=== PATIENT | female | born 1975 | race Caucasian/White ===

== ENCOUNTER 2022-07-11 11:18 | Outpatient (CLI) | payer BC, SELFPAY ==
--- NOTE | 2022-07-11 11:30 | CRLHL7_ITS ---
For Patients: As a result of the Cures Act, medical imaging exams and procedure reports are released immediately into your electronic medical record. You may view this report before your referring provider. If you have questions, please contact your health care provider. BILATERAL SCREENING MAMMOGRAM WITH COMPUTER-AIDED DETECTION AND TOMOSYNTHESIS TECHNIQUE: CC and MLO views were obtained. These mammographic images have been obtained using full-field digital technique. These mammographic images were interpreted with the benefit of computer-aided detection. Breast Tomosynthesis was used in this interpretation. COMPARISON FILM: 05/31/21, 05/25/20, 04/15/19. FINDINGS: There are scattered areas of fibroglandular density IMPRESSION: There is no radiographic evidence for malignancy. ASSESSMENT: BI-RADS Category 1: Negative RECOMMENDATION: Routine screening mammogram in 1 year. A lay language report of this examination will be provided to the patient. Darío Luu M.D. Diagnostic Radiologist [email or web address] Transcribed: 2:34 p.mMikayla barnes/Dictated by: Darío Luu MD @ 07/11/2022 12:50:00 PM (Electronically Signed)
== END 2022-07-11 11:19 | disposition home or self-care (01) ==
LOC: MAMMO 11:20
PROVIDERS: PCP Physician Assistant Medical; Visit Provider Physician Assistant
DX: Z12.31 Encounter for screening mammogram for malignant neoplasm of breast (principal)
CPT/HCPCS: 77063; 77067

== ENCOUNTER 2022-10-14 09:00 | Outpatient (CLI) | payer BC, SELFPAY | END 2022-10-14 09:01 | disposition home or self-care (01) | LOC: NFLDREF 10-15 10:53 | PROVIDERS: PCP Physician Assistant Medical; Referring Provider Physician Assistant Medical; Visit Provider Physician Assistant | DX: Z13.6 Encounter for screening for cardiovascular disorders (principal); Z13.1 Encounter for screening for diabetes mellitus | CPT/HCPCS: 80061; 82947 ==

== ENCOUNTER 2023-09-21 10:20 | Outpatient (CLI) | payer BC, SELFPAY | END 2023-09-21 10:21 | disposition home or self-care (01) | PROVIDERS: PCP Physician Assistant Medical; Visit Provider Physician Assistant | DX: Z01.419 Encounter for gynecological examination (general) (routine) without abnormal findings (principal); Z13.6 Encounter for screening for cardiovascular disorders; Z13.1 Encounter for screening for diabetes mellitus | CPT/HCPCS: 80061; 82947 ==

== ENCOUNTER 2023-10-17 08:03 | Outpatient (CLI) | payer BC, SELFPAY ==
--- NOTE | 2023-10-17 08:15 | MM_ITS ---
Patient: EDILSON PLASENCIA Facility:?[facility] Patient ID:?[id number] Site Patient ID:?[id number] Site :?[id number] Study:?US-Breast Left 3D screening mammogram w/cad-10/17/2023 8:36:54 AM Ordering Physician:RILEY Final Report: BILATERAL SCREENING MAMMOGRAM WITH COMPUTER-AIDED DETECTION AND TOMOSYNTHESIS TECHNIQUE: CC and MLO views were obtained. These mammographic images have been obtained using full-field digital technique. These mammographic images were interpreted with the benefit of computer-aided detection. Breast Tomosynthesis was used in this interpretation. COMPARISON FILM: 07/11/22, 05/31/21, 05/25/20. FINDINGS: There are scattered areas of fibroglandular density. IMPRESSION: There is no radiographic evidence for malignancy. ASSESSMENT: BI-RADS Category 1: Negative RECOMMENDATION: Routine screening mammogram in 1 year. A lay language report of this examination will be provided to the patient. Darío Luu M.D. Diagnostic Radiologist [email or web address] DSM/sp R& Transcribed: 2:04 p.m. SP/Dictated by: Darío Luu MD @ 10/17/2023 9:10:00 AM Signed by:?Darío Luu MD @10/17/2023 2:33:47 PM (Electronic Signature)
== END 2023-10-17 08:04 | disposition home or self-care (01) ==
LOC: MAMMO 08:04
PROVIDERS: PCP Physician Assistant Medical; Visit Provider Physician Assistant
DX: Z12.31 Encounter for screening mammogram for malignant neoplasm of breast (principal)
CPT/HCPCS: 77063; 77067

== ENCOUNTER 2024-10-10 13:24 | Outpatient (CLI) | payer BC, SELFPAY | END 2024-10-10 13:25 | disposition home or self-care (01) | PROVIDERS: PCP Physician Assistant Medical; Visit Provider Physician Assistant Medical | DX: Z13.228 Encounter for screening for other metabolic disorders (principal); Z13.6 Encounter for screening for cardiovascular disorders; Z13.29 Encounter for screening for other suspected endocrine disorder | CPT/HCPCS: 80053; 80061; 84443 ==

== ENCOUNTER 2024-10-16 14:32 | Outpatient (CLI) | payer BC, SELFPAY ==
--- NOTE | 2024-10-16 14:45 | CRLHL7_ITS ---
For Patients: As a result of the Century Cures Act, medical imaging exams and procedure reports are released immediately into your electronic medical record. You may view this report before your referring provider. If you have questions, please contact your health care provider. Indication: Cyst behind the right knee Technique: Grayscale and color Doppler ultrasound of the right posterior knee soft tissues performed. Comparison: None Findings: Fluid collection in the posterior knee soft tissues is present without internal vascularity or solid component. This measures 5.5 x 1.7 x 1.8 cm. Impression: Popliteal cyst measures 5.5 x 1.7 x 1.8 cm. Dictated by Darío Luu MD @ 10/18/2024 10:05:44 AM (Electronically Signed)
== END 2024-10-16 14:33 | disposition home or self-care (01) ==
LOC: US 14:33
PROVIDERS: PCP Physician Assistant Medical; Visit Provider Physician Assistant Medical
DX: M25.861 Other specified joint disorders, right knee (principal); M71.21 Synovial cyst of popliteal space [Baker], right knee
CPT/HCPCS: 76882

== ENCOUNTER 2024-12-11 15:06 | Outpatient (CLI) | payer BC, SELFPAY ==
--- NOTE | 2024-12-11 15:20 | CRLHL7_ITS ---
For Patients: As a result of the Century Cures Act, medical imaging exams and procedure reports are released immediately into your electronic medical record. You may view this report before your referring provider. If you have questions, please contact your health care provider. INDICATION: BILATERAL SCREENING MAMMOGRAM, ASYMPTOMATIC 49 Y/O FEMALE COMPARISON: 10/20/2023, 07/11/2022, 05/31/2021 TECHNIQUE: Digital mammogram in CC and MLO projections including computer-aided detection (CAD) and tomosynthesis. BREAST COMPOSITION: There are scattered areas of fibroglandular density. FINDINGS: No suspicious findings. ASSESSMENT: BI-RADS 1 Negative RECOMMENDATION: Annual screening mammogram. A lay language report of this examination will be provided to the patient. Dictated by: Darío Luu MD @ 12/13/2024 08:42:06 (Electronically Signed)
== END 2024-12-11 15:07 | disposition home or self-care (01) ==
LOC: MAMMO 15:07
PROVIDERS: PCP Physician Assistant Medical; Visit Provider Physician Assistant Medical
DX: Z12.31 Encounter for screening mammogram for malignant neoplasm of breast (principal)
CPT/HCPCS: 77063; 77067

== ENCOUNTER 2025-05-27 10:26 | Outpatient (CLI) | payer BC, SELFPAY | END 2025-05-27 10:27 | disposition home or self-care (01) | LOC: NFLDREF 10:27 | PROVIDERS: PCP Physician Assistant Medical; Visit Provider Physician Assistant | DX: E78.5 Hyperlipidemia, unspecified (principal) | CPT/HCPCS: 80061 ==